=== PATIENT | female | born 1970 | race Two or more races ===

== ENCOUNTER 2021-03-01 11:44 | Inpatient (IN) ==
[2021-03-01] MEDS ORDERED: PROMETHAZINE 25 MG/1 ML VIAL IM PRN (12:37)
[2021-03-01] MEDS ORDERED: ACETAMINOPHEN/CODEINE 300-30 MG TABLET PO PRN ×2 (12:37→12:38)
[2021-03-01] MEDS ORDERED: MEPERIDINE 50 MG/1 ML VIAL IV PRN (12:37)
[2021-03-01] MEDS ORDERED: ONDANSETRON 4 MG/2 ML VIAL IV PRN (12:38)
[2021-03-01 14:33] LABS: Basophils % 0.6 % (0.0-0.8); Eosinophils # 0.1 10*3/uL (0.0-0.87); Eosinophils % 1.2 % (0.00-10.9); Hematocrit 40.5 VOL% (35.7-47.0); Hemoglobin 12.6 GM/DL (12.0-16.0); Immature Granulocytes % 0.3 %; Immature Granulocytes Absolute 0.02 #; Lymphocytes # 2.1 10*3/uL (1.4-4.0); Lymphocytes % 32.2 % (21.3-54.2); Mean Corpuscular HGB Conc 31.1 GM/DL (32-36); Mean Corpuscular Volume 89.4 FL (87-102); Mean Platelet Volume 9.1 FL (9.6-12.0); Monocytes % 7.1 % (1.7-12.7); Neutrophils % 58.6 % (38.7-73.9); Platelet Count 329 T/CUMM (130-400); Red Blood Count 4.53 MC/CUMM (3.8-5.5); Red Cell Distribution Width 13.4 % (9.3-17.3); White Blood Count 6.5 T/CUMM (4-12)
[2021-03-01 14:52] LABS: Albumin 3.5 G/DL (3.4-5.0); Bilirubin,Total 0.4 MG/DL (0.20-1.00); Calcium 8.6 MG/DL (8.5-10.1); Osmolality,Calculated 273.7 MOS/KG (273-304); Potassium 4.8 MMOL/L (3.5-5.1); Total Protein 7.1 G/DL (6.4-8.2)
[2021-03-01] MEDS: LACTATED RINGERS 1,000 ML IV SCH (17:00)
[2021-03-02] MEDS: LACTATED RINGERS 1,000 ML IV SCH ×2 (01:46→09:35)
[2021-03-02] MEDS ORDERED: MIDAZOLAM 2 MG/2 ML VIAL ONE (06:32)
[2021-03-02] MEDS ORDERED: fentaNYL 100 MCG/2 ML VIAL ONE ×2 (06:32→09:00)
[2021-03-02] MEDS ORDERED: LIDOCAINE 2% 5 ML VIAL ONE (06:34)
[2021-03-02] MEDS ORDERED: propofoL 200 MG/20 ML VIAL IV ONE (06:34)
[2021-03-02] MEDS ORDERED: ROCURONIUM 50 MG/5 ML VIAL IV ONE (06:34)
[2021-03-02] MEDS ORDERED: PHENYLEPHRINE 10 MG/1 ML VIAL IV ONE (06:35)
[2021-03-02] MEDS ORDERED: FAMOTIDINE 20 MG/2 ML VIAL IV ONE (07:03)
[2021-03-02] MEDS ORDERED: ceFAZolin 1,000 MG VIAL ONE (07:47)
[2021-03-02] MEDS ORDERED: ePHEDrine 50 MG/ML VIAL ONE (07:52)
[2021-03-02] MEDS ORDERED: KETOROLAC 30 MG/1 ML VIAL ONE (07:56)
[2021-03-02] MEDS ORDERED: DEXAMETHASONE 4 MG/1 ML VIAL ONE (07:56)
[2021-03-02] MEDS ORDERED: ONDANSETRON 4 MG/2 ML VIAL ONE (07:56)
[2021-03-02] MEDS ORDERED: ACETAMINOPHEN INJ 1,000 MG/100 ML VIAL IV ONE (08:19)
[2021-03-02] MEDS ORDERED: GLYCOPYRROLATE 0.4 MG/2 ML VIAL ONE ×2 (08:44)
[2021-03-02] MEDS ORDERED: NEOSTIGMINE 10 MG/10 ML VIAL ONE (08:44)
[2021-03-02] MEDS ORDERED: ACETAMINOPHEN 325 MG TABLET PO PRN (09:06)
[2021-03-02] MEDS ORDERED: BISACODYL 10 MG SUPP RECTAL PRN (09:06)
[2021-03-02] MEDS ORDERED: MAGNESIUM HYDROXIDE SUSP 30 ML UDCUP PO PRN (09:06)
[2021-03-02] MEDS ORDERED: BENZOCAINE/MENTHOL LOZENGE 18/BOX PO PRN (09:06)
[2021-03-02] MEDS ORDERED: ONDANSETRON 4 MG/2 ML VIAL IV PRN ×2 (09:06→09:39)
[2021-03-02] MEDS ORDERED: HYDROmorphone 2 MG/1 ML VIAL IV PRN (09:11)
[2021-03-02 09:23] LABS: Bilirubin,Urine Negative (Negative); Blood, Urine Negative (Negative); Glucose,Urine (UA) Negative (Negative); Ketones,Urine Negative (Negative); Nitrite,Urine Negative (Negative); Protein,Urine Negative; RBC,Urine <1 /HPF (0-4); Urine Appearance CLEAR (Clear); Urine Color Colorless (Yellow); Urine Specific Gravity 1.005 (1.001-1.035); Urine Urobilinogen < 2.0 EU/DL (0.2-1.0)
[2021-03-02] MEDS ORDERED: LACTATED RINGERS 1,000 ML IV SCH (09:30)
[2021-03-02] MEDS: HYDROmorphone 2 MG/1 ML VIAL IV PRN ×2 (09:55→10:04)
[2021-03-02] MEDS ORDERED: SEVOFLURANE 1 UNIT/15 MINUTE INH ONE (10:10)
[2021-03-02] MEDS ORDERED: KETOROLAC 30 MG/1 ML VIAL IV ONE (12:45)
[2021-03-02 17:50] LABS: Basophils % 0.1 % (0.0-0.8); Hematocrit 34.7 VOL% (35.7-47.0); Hemoglobin 11.1 GM/DL (12.0-16.0); Immature Granulocytes % 0.5 %; Immature Granulocytes Absolute 0.05 #; Lymphocytes # 0.6 10*3/uL (1.4-4.0); Mean Corpuscular Volume 87.2 FL (87-102); Mean Platelet Volume 9.2 FL (9.6-12.0); Monocytes % 0.9 % (1.7-12.7); Neutrophils % 92.5 % (38.7-73.9); Platelet Count 305 T/CUMM (130-400); Red Blood Count 3.98 MC/CUMM (3.8-5.5); Red Cell Distribution Width 13.2 % (9.3-17.3); White Blood Count 9.6 T/CUMM (4-12)
[2021-03-02 19:08] LABS: Lymphocytes 5 % (20-55); Microcytosis Slight; Platelet Estimate Normal; Segmented Neutrophils 95 % (50-85); Total Cells Counted 100
[2021-03-02] MEDS ORDERED: SIMETHICONE CHEW 80 MG TABLET PO PRN (22:24)
[2021-03-03 05:53] LABS: Basophils % 0.1 % (0.0-0.8); Hematocrit 29.2 VOL% (35.7-47.0); Hemoglobin 9.8 GM/DL (12.0-16.0); Immature Granulocytes % 0.5 %; Immature Granulocytes Absolute 0.04 #; Lymphocytes # 1.6 10*3/uL (1.4-4.0); Lymphocytes % 19.8 % (21.3-54.2); Mean Corpuscular HGB Conc 33.6 GM/DL (32-36); Mean Corpuscular Volume 86.9 FL (87-102); Mean Platelet Volume 9.2 FL (9.6-12.0); Monocytes % 7.8 % (1.7-12.7); Neutrophils % 71.8 % (38.7-73.9); Platelet Count 283 T/CUMM (130-400); Red Blood Count 3.36 MC/CUMM (3.8-5.5); Red Cell Distribution Width 13.4 % (9.3-17.3); White Blood Count 7.9 T/CUMM (4-12)
[2021-03-03] MEDS: METOCLOPRAMIDE 10 MG TABLET PO SCH ×2 (09:56→16:25)
[2021-03-03] MEDS: DOCUSATE SODIUM 100 MG CAPSULE PO PRN ×2 (09:56→21:11)
[2021-03-03] MEDS: IBUPROFEN 800 MG TABLET PO PRN (21:11)
[2021-03-04] MEDS: METOCLOPRAMIDE 10 MG TABLET PO SCH ×2 (08:16)
[2021-03-04] MEDS: DOCUSATE SODIUM 100 MG CAPSULE PO PRN (08:16)
[2021-03-04] MEDS: IBUPROFEN 800 MG TABLET PO PRN (08:18)
[2021-03-04 12:34] VITALS: BP 108/63
== END 2021-03-04 13:20 | disposition home or self-care (01) | DRG 743 ==
LOC: N.OB
PROVIDERS: ADMIT Obstetrics & Gynecology; ATTEND Obstetrics & Gynecology